=== PATIENT | female | born 1960 | race Caucasian/White ===

== ENCOUNTER 2018-05-05 11:10 | Emergency (ER) | payer MEDICAID ==
[2018-05-05] MEDS: HYDROCODONE/APAP (5/325) TAB PO (11:46)
[2018-05-05] MEDS: DEXAMETHASONE 10 MG/ML 1 ML INJ IM (11:46)
[2018-05-05] MEDS: KETOROLAC 30 MG INJ IM (11:50)
[2018-05-05 11:52] LABS: ADD UMIC YES; UR ASCORBIC ACID NEGATIVE (NEGATIVE); UR BILIRUBIN (Dip) NEGATIVE (NEGATIVE); UR BLOOD (Dip) 1+ mg/dL (NEGATIVE); UR CLARITY CLEAR (CLEAR); UR COLOR YELLOW (YELLOW); UR GLUCOSE (Dip) NEGATIVE (NEGATIVE); UR KETONES (Dip) NEGATIVE (NEGATIVE); UR LEUKOCYTE ESTERASE (Dip) NEGATIVE Leu/ul (NEGATIVE); UR NITRITE (Dip) NEGATIVE (NEGATIVE); UR RBC 0 /HPF (0-5); UR SPECIFIC GRAVITY (Dip) 1.015 (1.003-1.030); UR TOTAL PROTEIN (Dip) NEGATIVE (NEGATIVE); UR UROBILINOGEN (Dip) NEGATIVE (NEGATIVE); UR WBC 1 /HPF (0-5)
== END 2018-05-05 12:28 | disposition home or self-care (01) ==
LOC: FTE 11:10
DX: M54.31 Sciatica, right side (principal)
CPT/HCPCS: 81001; 81025; 96372; 99284-25

== ENCOUNTER 2018-08-11 13:31 | Emergency (ER) | payer MEDICAID ==
[2018-08-11] MEDS ORDERED: ALBUTEROL 0.083% (NEB) 2.5 MG/3 ML AMP (14:34)
[2018-08-11] MEDS ORDERED: IPRATROPIUM (NEB) 0.5 MG/2.5 ML AMP (14:35)
[2018-08-11] MEDS: ALBUTEROL 0.083% (NEB) 2.5 MG/3 ML AMP HHN (14:42)
[2018-08-11] MEDS: IPRATROPIUM (NEB) 0.5 MG/2.5 ML AMP HHN (14:42)
[2018-08-11] MEDS: ACETAMINOPHEN 325/HYDROC 7.5 15 ML CUP PO (14:45)
== END 2018-08-11 16:25 | disposition home or self-care (01) ==
LOC: FTE 13:31
DX: R05 Cough (principal); R50.9 Fever, unspecified
CPT/HCPCS: 71046; 94664; 99283-25